=== PATIENT | male | born 1965 | race Caucasian/White ===

== ENCOUNTER 2017-05-29 19:39 | Emergency (ER) | payer OTHER ==
[~2017-05-29] VITALS: Ht 175.3 cm; Wt 119.4 kg
[2017-05-29 21:38] LABS: MCH 28.8 PG (29.0-34.0); MCHC 33.5 G/DL (30.0-36.0); MCV 85.9 FL (86-99); MEAN PLAT.VOLUME 10.4 uM^3 (9.0-12.4); PLATELET COUNT 239 K/uL (156-360); RBC DIS.WIDTH-CV 13.6 % (11.8-14.6); RBC DIS.WIDTH-SD 42.2 % (39-53); RED BLOOD COUNT 5.59 M/uL (4.00-5.50); WHITE BLOOD COUNT 14.6 K/uL (4.1-10.2)
[2017-05-29 21:46] LABS: CHLORIDE 106 mEq/L (99-109); POTASSIUM 4.7 mEq/L (3.7-5.4); SODIUM 141 mEq/L (136-147)
[2017-05-29 21:49] LABS: GLUCOSE 149 mg/dL (70-99)
[2017-05-29 21:50] LABS: ANION GAP 10 MEQ/L (2-14)
[2017-05-29 21:51] LABS: TOTAL BILIRUBIN 0.5 mg/dL (0.0-1.0)
[2017-05-29 21:52] LABS: ALKALINE PHOSPHATASE 62 IU/L (3-129); GFR ESTIMATE (CALCULATED) 34 mL/min/
[2017-05-29 21:53] LABS: UREA NITROGEN (BUN) 22 mg/dL (9-23)
[2017-05-29 22:41] LABS: ADD MIUA? YES; BILIRUBIN NEGATIVE; BLOOD LARGE; COLOR YELLOW ((YELLOW)); GLUCOSE (STRIP) NEGATIVE; KETONES NEGATIVE; LEUKOCYTES SMALL; NITRITE NEGATIVE; PROTEIN (STRIP) 30; SPECIFIC GRAVITY 1.016 (1.000-1.030); UROBILINOGEN 0.2 MG/DL (0.2-1.0)
[2017-05-29 22:48] LABS: BACTERIA RARE /HPF; EPITHELIAL CELLS RARE /HPF; MUCUS TRACE /LPF; UCUL ADDED? NO; WHITE BLOOD CELLS 0-5 /HPF (0-5)
[2017-05-29 23:45] VITALS: BP 173/112
[2017-05-30 00:09] LABS: LIPASE 34 U/L (1.0-51.0)
[2017-05-30] MEDS ORDERED: CIPRO500 MG PO (00:36)
[2017-05-30] MEDS ORDERED: PERCOCET 5/31 TABLET PO (00:37)
== END 2017-05-30 01:09 | disposition home or self-care (01) ==
LOC: EME 19:39
DX: N13.39 Other hydronephrosis (principal)
CPT/HCPCS: 74176; 80053; 81003; 83690; 85027; 99281; 99285; J1885